=== PATIENT | female | born 1960 | race Caucasian/White ===

== ENCOUNTER → 2018-02-19 | Outpatient (CLI) | payer MEDICARE, MEDICAID ==
[~2018-02-19] MED LIST: CARV6.25 OR; DOXE25CA2 OR; EZET10TA38 OR; LANS15CA21 OR; LEVA0.31 IN; LEVO100T8 OR; MELO1TAB73 OR; METF-370 OR; MONT10TA23 OR; NAS17NSL; PIOG30TA8 OR; SIMV10TA84 OR; SIMV40TA96 OR; [UNRECOGNIZED DRUG - CODE] OR
[2018-02-19 15:45] LABS: Urine Blood Negative /uL (Negative); Urine Specific Gravity 1.034 (1.001-1.035)
[2018-02-19 15:49] LABS: Basophils # (auto) 0.1 uL; Eosinophils # (auto) 0.3 uL; Hemoglobin 13.3 g/dL (12.2-16.2); Monocytes # (auto) 0.7 uL; Neutrophils # (auto) 6.8 uL; Nucleated Red Blood Cells % 0.1 %
[2018-02-19 15:51] LABS: Basophils % (auto) 0.6 % (0.0-2.0); Eosinophils % (auto) 3.1 % (0.0-7.0); Hematocrit 41.9 % (36.0-46.0); Lymphocytes # (auto) 1.5 uL; Lymphocytes % (auto) 16.2 % (10.0-50.0); Mean Corpuscular Hemoglobin 25.9 pg (28.0-32.0); Mean Corpuscular Hgb Conc. 31.7 g/dL (32.0-36.0); Mean Corpuscular Volume 81.9 fL (80.0-100.0); Monocytes % (auto) 7.2 % (0.0-12.0); Neutrophils % (auto) 72.9 % (37.0-80.0); Platelet Count (auto) 382 10^3/uL (140-450); Red Blood Cells 5.11 10^6/uL (4.0-5.20); Red Cell Distribution Width 17.7 % (11.8-14.3); White Blood Cell 9.3 10^3/uL (4.4-10.8)
[2018-02-19 16:02] LABS: Alanine Aminotransferase 20 U/L (13-56); Albumin 3.4 g/dL (3.4-5.0); Alkaline Phosphatase 106 U/L (45-117); Anion Gap 10 (5-15); Aspartate Aminotransferase 15 U/L (15-37); BUN/Creatinine Ratio 9.3; Bilirubin, Direct < 0.1 mg/dL (0-0.2); Bilirubin, Total 0.2 mg/dL (0.2-1.0); Blood Urea Nitrogen 10 mg/dL (7-18); Carbon Dioxide 24 mmol/L (21-32); Chloride 102 mmol/L (98-107); Cholesterol 257 mg/dL (< 200); GFR African American 67 mL/min; GFR Non-African American 55 mL/min; Glucose 252 mg/dL (74-106); HDL Cholesterol 47 mg/dL (40-59); LDL Cholesterol 170 mg/dL (< 100); Sodium 136 mmol/L (136-145); Total Protein 8.6 g/dL (6.4-8.2); Triglycerides 389 mg/dL (< 150)
== END | disposition home or self-care (01) ==
LOC: Rad HDHVI 14:42
PROVIDERS: ATTEND Internal Medicine Cardiovascular Disease
DX: I51.7 Cardiomegaly (principal); E78.5 Hyperlipidemia, unspecified; D64.9 Anemia, unspecified; K74.1 Hepatic sclerosis; I10 Essential (primary) hypertension; E03.9 Hypothyroidism, unspecified; E11.9 Type 2 diabetes mellitus without complications; E55.9 Vitamin D deficiency, unspecified; N39.0 Urinary tract infection, site not specified
CPT/HCPCS: 36415; 71046; 80048; 80061; 80076; 81003; 82306; 83036; 84443; 85025

== ENCOUNTER 2018-05-20 14:09 | Emergency (ER) | payer MEDICARE, MEDICAID ==
[~2018-05-20] VITALS: Ht 175.3 cm; Wt 122.5 kg
[2018-05-20 14:26] VITALS: BP 156/100
== END 2018-05-20 17:21 | disposition home or self-care (01) ==
LOC: ER 14:11
DX: J40 Bronchitis, not specified as acute or chronic (principal); E66.9 Obesity, unspecified; Z68.41 Body mass index [BMI] 40.0-44.9, adult
CPT/HCPCS: 71046; 93005

== ENCOUNTER → 2019-09-07 | Outpatient (CLI) | payer MEDICAID, MEDICARE ==
[~2019-09-07] MED LIST changes: +EZET10TA24 OR; -EZET10TA38 OR; +PIOG30TA20 OR; -PIOG30TA8 OR
[2019-09-07 16:33] LABS: Basophils # (auto) 0.1 uL; Eosinophils # (auto) 0.2 uL; Lymphocytes # (auto) 1.7 uL; Lymphocytes % (auto) 17.9 % (10.0-50.0); Monocytes # (auto) 0.5 uL; Monocytes % (auto) 5.4 % (0.0-12.0); White Blood Cell 9.5 10^3/uL (4.4-10.8)
[2019-09-07 16:36] LABS: Eosinophils % (auto) 2.6 % (0.0-7.0); Hematocrit 38.6 % (36.0-46.0); Hemoglobin 12.1 g/dL (12.2-16.2); Mean Corpuscular Hemoglobin 24.3 pg (28.0-32.0); Mean Corpuscular Hgb Conc. 31.4 g/dL (32.0-36.0); Mean Corpuscular Volume 77.3 fL (80.0-100.0); Neutrophils # (auto) 6.9 uL; Neutrophils % (auto) 73.1 % (37.0-80.0); Platelet Count (auto) 399 10^3/uL (140-450); Red Cell Distribution Width 19.2 % (11.8-14.3)
[2019-09-07 16:50] LABS: Albumin 3.4 g/dL (3.4-5.0); Potassium 3.7 mmol/L (3.5-5.1)
[2019-09-07 16:56] LABS: BUN/Creatinine Ratio 14.6; Bilirubin, Direct 0.1 mg/dL (0-0.2); Bilirubin, Total 0.4 mg/dL (0.2-1.0); Total Protein 8.4 g/dL (6.4-8.2)
== END | disposition home or self-care (01) ==
LOC: Rad HDHVI 15:27
PROVIDERS: ATTEND Internal Medicine Cardiovascular Disease
DX: I51.7 Cardiomegaly (principal); E03.9 Hypothyroidism, unspecified; K90.9 Intestinal malabsorption, unspecified; Z79.899 Other long term (current) drug therapy
CPT/HCPCS: 36415; 71046; 80048; 80061; 80076; 82306; 83036; 84443; 85025